=== PATIENT | female | born 1965 | race Caucasian/White ===

== ENCOUNTER 2016-12-29 12:12 | Emergency (ER) | payer MEDICAID, OTHER ==
[~2016-12-29] VITALS: Ht 152.4 cm; Wt 93.5 kg
[2016-12-29 12:26] VITALS: Ht 152.4 cm; Wt 93.5 kg
[2016-12-29] MEDS ORDERED: IBUPROFEN 800 MG TAB PO ONE (14:00)
[2016-12-29] MEDS ORDERED: IBUP-1542 PO (14:01)
--- NOTE | 2016-12-29 14:42 | ERD ---
ER Documentation Chief Complaint Date/Time DATE: 12/29/16 TIME: 14:40 Chief Complaint BILATERAL KNEE PAIN S/P TRIP AND FALL 1 DAY AGO HPI Patient is a 51-year-old female with hypertension who presents with knee pain after a fall. The patient had a trip and fall yesterday. The patient has pain over the bilateral knees. The patient tried Ultracet and nabumetone but the medicines were so they came to the ER for pain medicine. The patient came with her son. She does not know the name of her primary doctor. She has not called her primary doctor as of yet. The pain is constant. ROS All systems reviewed and are negative except as per history of present illness. Medications Home Meds Active Scripts Ibuprofen* (Motrin*) 600 Mg Tab, 600 MG PO Q6H Y for PAIN AND OR ELEVATED TEMP, #30 TAB Prov:AVTAR TORRES MD 12/29/16 Reported Medications [None] No Conflict Check 12/14/09 Allergies Allergies: Coded Allergies: No Known Allergy (Verified , 12/29/16) PMhx/Soc Medical and Surgical Hx: pt denies Surgical Hx History of Surgery: Yes (C-SECETION AUG 2000, ATOPIC PREG 1998) Hx Neurological Disorder: No Hx Respiratory Disorders: No Hx Cardiac Disorders: No Hx Miscellaneous Medical Probl: No Hx Alcohol Use: No Hx Substance Use: No Hx Tobacco Use: No Smoking Status: Never smoker FmHx Family History: No diabetes Physical Exam Vitals Vital Signs Date Time Temp Pulse Resp B/P Pulse Ox O2 Delivery O2 Flow Rate FiO2 12/29/16 12:26 96.8 84 18 133/74 97 Physical Exam Const: Mild distress secondary to pain Head: Atraumatic Eyes: Normal Conjunctiva ENT: Normal External Ears, Nose and Mouth. Neck: Full range of motion..~ No meningismus. Resp: Clear to auscultation bilaterally Cardio: Regular rate and rhythm, no murmurs Abd: Soft, non tender, non distended. Normal bowel sounds Skin: Abrasions of the anterior knees without laceration Back: No midline or flank tenderness Ext: No sign of deformity noted, no knee effusion bilaterally Neur: Awake and alert Psych: Normal Mood and Affect Results 24 hrs Current Medications Medications (Trade) Dose Ordered Sig/Nupur Route PRN Reason Start Time Stop Time Status Last Admin Dose Admin Ibuprofen (Motrin) 800 mg ONCE ONCE PO 12/29/16 14:00 12/29/16 14:01 DC 12/29/16 14:16 Procedures/MDM Patient is a 51-year-old female who presents with bilateral knee pain. I believe she has bilateral knee contusion. I do not believe she requires x-ray of the knees at this time as she has full range of motion and no signs of deformity or joint effusion. The patient will be given ibuprofen for pain. She will be given a prescription for ibuprofen. She can return sooner for any worsening symptoms. She should follow-up with her primary doctor within 24-48 hours for evaluation. Departure Diagnosis: Primary Impression: Knee pain Laterality: bilateral Chronicity: acute Qualified Code: M25.561 - Acute pain of both knees Condition: Fair Patient Instructions: Contusion, Lower Extremity Referrals: ELIO OVIEDO (PCP) Additional Instructions: Llame al doctor MAANA y eun kaiden ROWAN PARA DENTRO DE 1-2 WISEMAN.Dgale a la secretaria que nosotros le instruimos hacer esta rowan.Avise o llame si lara condicin se empeora antes de la rowan. Regresa aqui si peor o no mejor. AVTAR TORRES MD Dec 29, 2016 14:41
[2016-12-29 14:56] VITALS: BP 134/78; PULSE 75; RESP 19; TEMP 98.4
== END 2016-12-29 14:59 | disposition home or self-care (01) ==
LOC: FTE 14:18
DX: S89.91XA Unspecified injury of right lower leg, initial encounter (principal); S89.92XA Unspecified injury of left lower leg, initial encounter; I10 Essential (primary) hypertension; W01.0XXA Fall on same level from slipping, tripping and stumbling without subsequent striking against object, initial encounter; Y92.9 Unspecified place or not applicable
CPT/HCPCS: 99283

== ENCOUNTER 2017-03-19 07:24 | Emergency (ER) | payer OTHER ==
[~2017-03-19] VITALS: Ht 157.5 cm; Wt 93.0 kg
[~2017-03-19 07:24] MED LIST: IBUP-1542 PO
[2017-03-19 07:25] VITALS: Ht 157.5 cm; Wt 93.0 kg
--- NOTE | 2017-03-19 08:17 | ERD ---
ER Documentation Chief Complaint Date/Time DATE: 03/19/17 TIME: 08:15 Chief Complaint KAMLESH KNEE PAIN,Pt FELL 3 MONTHS AGO HPI Is a 51-year-old female who presents the emergency department today complaining of bilateral knee pain. Patient states she fell 3 months ago and was seen here in the emergency department. States that she has had continued knee pain. States she has not follow-up with her primary care physician has just been taking Motrin. Denies any fevers or chills any trauma. ROS All systems reviewed and are negative except as per history of present illness. Medications Home Meds Active Scripts Acetaminophen* (Tylophen*) 500 Mg Capsule, 1 CAP PO Q6H Y for PAIN AND OR ELEVATED TEMP, #30 CAP Prov:TIKA PHAM PA-C 03/19/17 Tramadol HCl (Tramadol HCl) 50 Mg Tablet, 50 MG PO Q4 Y for PAIN, #20 TAB Prov:TIKA PHAM PA-C 03/19/17 Ibuprofen* (Motrin*) 600 Mg Tab, 600 MG PO Q6H Y for PAIN AND OR ELEVATED TEMP, #30 TAB Prov:AVTAR TORRES MD 12/29/16 Reported Medications [None] No Conflict Check 12/14/09 Allergies Allergies: Coded Allergies: No Known Allergy (Verified , 12/29/16) PMhx/Soc History of Surgery: Yes (C-SECETION AUG 2000, ATOPIC PREG 1998) Hx Neurological Disorder: No Hx Respiratory Disorders: No Hx Cardiac Disorders: No Hx Miscellaneous Medical Probl: No Hx Alcohol Use: No Hx Substance Use: No Hx Tobacco Use: No Physical Exam Vitals Vital Signs Date Time Temp Pulse Resp B/P Pulse Ox O2 Delivery O2 Flow Rate FiO2 03/19/17 07:25 98.0 92 18 162/92 98 Physical Exam Const: Obese, no acute distress Head: Atraumatic Eyes: Normal Conjunctiva ENT: Normal External Ears, Nose and Mouth. Neck: Full range of motion..~ No meningismus. Resp: Clear to auscultation bilaterally Cardio: Regular rate and rhythm, no murmurs Skin: No petechiae or rashes MSK bilateral knees with no obvious deformity. No effusion. No ecchymosis. Diffusely tender to palpation anterior aspect. Pain with full flexion. Distal neurovascularly intact. Pulses 2+. Psych: Normal Mood and Affect Results 24 hrs Current Medications Medications (Trade) Dose Ordered Sig/Nupur Route PRN Reason Start Time Stop Time Status Last Admin Dose Admin Acetaminophen/ Hydrocodone Bitart ([place] (5/325)) 1 tab ONCE ONCE PO 03/19/17 08:30 03/19/17 08:31 DC 03/19/17 08:19 DIAGNOSTIC IMAGING REPORT Patient: STEPHANIE BRIGGS : 1965 Age: 51 Sex: F MR #: [id number] DOS: 03/19/17 0000 Ordering MD: TIKA PHAM PA-C Location: [facility] Room/Bed: PROCEDURE: Right knee series CLINICAL INDICATION: 3-month history of trauma. TECHNIQUE: AP, , tunnel, oblique, and lateral views of the right knee were obtained and a single lateral view of the left knee was obtained. COMPARISON: None FINDINGS: There is no evidence of acute fractures or dislocations. The bony mineralization is normal. No focal bony blastic or lytic lesions. There is a small right knee joint effusion. Soft tissues are unremarkable. IMPRESSION: 1. No evidence acute fractures or dislocations. 2. Small right knee joint effusion. RPTAT:AAJJ Physician Ray Date Time Electronically viewed and signed by Physician Ray on 03/19/2017 08:59 BM/ CC: TIKA PHAM PA-C Procedures/MDM This 51-year-old female presents to the emergency department today complaining of bilateral knee pain for the past 3 months. Patient was seen here on December 29 after a fall. She did not have imaging done at that time. Patient continues to complain of persistent pain. Patient was requesting x-rays. Per the radiology report images of the bilateral knees with no evidence of acute fracture dislocation. There is a small right knee joint effusion. Soft tissues are unremarkable. Patient symptoms at this time is consistent with strain versus sprain versus contusion versus internal derangement secondary to mechanical fall 3 months ago. She is afebrile and otherwise well-appearing. Low suspicion for septic joint or gout. Patient was given [place] here in the emergency department. I will give her a very short course of tramadol and Tylenol. Patient will also be given an Fidel wrap for the small joint effusion. Patient was instructed to follow-up with an pharmacovigilance specialist At this time the patient is stable for discharge and outpatient management. Patient should follow up with their PCP in the next 1-2 days for referral to pharmacovigilance specialist. They may return to the emergency department sooner for any persistent or worsening of symptoms. Patient understood and agreed with the plan. Departure Diagnosis: Primary Impression: Knee pain Laterality: bilateral Chronicity: chronic Qualified Code: M25.561 - Chronic pain of both knees Condition: Fair TIKA PHAM PA-C Mar 19, 2017 08:17
[2017-03-19] MEDS ORDERED: HYDROCODONE/APAP (5/325) TAB PO ONE (08:30)
--- NOTE | 2017-03-19 08:59 | RADRPT ---
PROCEDURE: Right knee series CLINICAL INDICATION: 3-month history of trauma. TECHNIQUE: AP, , tunnel, oblique, and lateral views of the right knee were obtained and a single l ateral view of the left knee was obtained. COMPARISON: None FINDINGS: There is no evidence of acute fractures or dislocations. The bony mineralization is normal. No foc al bony blastic or lytic lesions. There is a small right knee joint effusion. Soft tissues are unr emarkable. IMPRESSION: 1. No evidence acute fractures or dislocations. 2. Small right knee joint effusion. RPTAT:AAJJ Physician Ray Date Time Electronically viewed and signed by Andrew Ray Physician on 03/19/2017 08:59 /
[2017-03-19] MEDS ORDERED: TRAM50TA2 PO (09:06)
[2017-03-19] MEDS ORDERED: ACET500C5 PO (09:06)
== END 2017-03-19 09:14 | disposition home or self-care (01) ==
LOC: FTE 07:24
DX: M25.561 Pain in right knee (principal); M25.562 Pain in left knee
CPT/HCPCS: 73562; Z7610